=== PATIENT | male | born 2000 | race American Indian/Alaskan Native ===

== ENCOUNTER 2021-11-06 18:34 | Emergency (ER) | payer OTHER, MEDICAID ==
[2021-11-06 18:57] VITALS: BP 116/66
[2021-11-06] MEDS ORDERED: KETOROLAC 30 MG/1 ML INJ IM ONE (21:25)
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
== END 2021-11-06 23:48 | disposition home or self-care (01) ==
LOC: ED 18:34
DX: S16.1XXA Strain of muscle, fascia and tendon at neck level, initial encounter (principal); S39.012A Strain of muscle, fascia and tendon of lower back, initial encounter; V49.49XA Driver injured in collision with other motor vehicles in traffic accident, initial encounter; Y93.89 Activity, other specified; Y92.89 Other specified places as the place of occurrence of the external cause; Y99.8 Other external cause status
CPT/HCPCS: 72040; 72100; 99283